=== PATIENT | male | born 1960 | race Caucasian/White ===

== ENCOUNTER 2021-07-08 08:20 | Observation (INO) ==
[2021-07-08] MEDS ORDERED: Ondansetron 4 MG/2 ML VIAL IVP ONE (08:40)
[2021-07-08] MEDS ORDERED: 0.9 % Sodium Chloride 1,000 ML IVC ONE (08:40)
[2021-07-08 09:22] LABS: Basophils % 0.5 %; Eosinophils # 0.1 K/mcL (0.0-0.6); Eosinophils % 1.5 %; Hematocrit 29.8 % (37.5-50.1); Hemoglobin 10.4 g/dL (12.9-16.9); Immature Granulocytes % 1.4 % (0-4); Lymphocytes # 1.7 K/mcL (0.6-4.6); Mean Corpuscular HGB Conc 34.9 g/dL (31.6-35.5); Mean Corpuscular Hemoglobin 33.1 pg (28.0-33.3); Mean Corpuscular Volume 94.9 fL (83.0-100.0); Mean Platelet Volume 9.9 fL (9.4-12.4); Monocytes # 0.4 K/mcL (0.0-1.3); Monocytes % 5.9 %; Platelet Count 210 K/mcL (140-400); Red Blood Count 3.14 M/mcL (4.19-5.50); Red Cell Distribution Width 11.6 % (11.5-14.5); Segmented Neutrophils % 67.7 %; White Blood Count 7.3 K/mcL (4.3-11.1)
[2021-07-08 09:29] LABS: INR 1.1; Prothrombin Time 12.8 Seconds (9.4-12.1)
[2021-07-08 09:35] LABS: Alanine Aminotransferase 12 Units/L (7-52); Albumin 4.5 g/dL (3.5-5.7); Albumin/Globulin Ratio 1.8 (1.1-2.2); Alkaline Phosphatase 56 Units/L (34-104); Aspartate Amino Transferase 12 Units/L (13-39); BUN/Creatinine Ratio 17 (6-26); Blood Urea Nitrogen 40 mg/dL (8-23); Calcium 9.9 mg/dL (8.6-10.3); Carbon Dioxide 28 mEq/L (23-29); Chloride 96 mEq/L (98-107); Globulin 2.5 g/dL (2.4-3.5); Glucose 262 mg/dL (70-105); Lipase 52 Units/L (11-82); Osmolality,Calculated 295 (280-300); Potassium 3.8 mEq/L (3.5-5.1); Sodium 133 mEq/L (136-145); eGFR For African Americans 34 (> 60); eGFR For Non-African Americans 28 (> 60)
[2021-07-08 09:52] LABS: Influenza A PCR Negative (Negative); Influenza B PCR Negative (Negative); Resp. Syncytial Virus PCR Negative (Negative)
[2021-07-08 09:54] LABS: SARS-CoV-2 by PCR (In House) Negative (Negative)
[2021-07-08] MEDS ORDERED: Metoclopramide 10 MG/2 ML VIAL IVP ONE (10:39)
[2021-07-08 10:40] LABS: Troponin I < 0.03 ng/mL (< 0.04)
[2021-07-08 10:42] LABS: Bacteria,Urine Few per hpf (None-Few); Bilirubin,Urine Negative (Negative); Blood,Urine Negative (Negative); Clarity,Urine Clear (Clear); Color,Urine Yellow (Yellow); Glucose,Urine (UA) Normal (Normal); Hyaline Casts,Urine Many per lpf (None Seen); Ketones,Urine Negative (Negative); Leukocyte Esterase,Urine Negative (Negative); Mucus,Urine Few per lpf (None-Few); Nitrite,Urine Negative (Negative); PH,Urine 5.5 pH Units (5.0-8.0); Protein,Urine 30 mg/dL (Neg-Trace); RBC,Urine 0-3 per hpf (0-3); Specific Gravity,Urine 1.021 (1.010-1.025); Squamous Epithelial Cell,Urine Few per hpf (None-Few); WBC,Urine 0-3 per hpf (0-3)
[2021-07-08] MEDS ORDERED: Naloxone 0.4 MG/ML INJ IVP PRN (11:34)
[2021-07-08] MEDS ORDERED: Melatonin 3 MG TABLET PO PRN (11:34)
[2021-07-08] MEDS ORDERED: Ondansetron 4 MG/2 ML VIAL IVP PRN (11:34)
[2021-07-08] MEDS ORDERED: Mag Hydrox/Al Hydrox/Simeth 30 ML UDC PO PRN (11:34)
[2021-07-08] MEDS ORDERED: MOM Conc 10 ML UD.LIQ PO PRN (11:34)
[2021-07-08] MEDS ORDERED: Dextrose Gel 15 GM/37.5 ML TUBE PO PRN ×2 (11:41)
[2021-07-08] MEDS ORDERED: D5% in Water 1,000 ML IVC PRN (11:41)
[2021-07-08] MEDS ORDERED: *HR* Dextrose 50 % in Water (Syg) 50 ML SYRINGE IVP PRN (11:41)
[2021-07-08] MEDS ORDERED: *HR* LORazepam 2 MG/ML VIAL IVP PRN ×3 (12:01)
[2021-07-08] MEDS: 0.9 % Sodium Chloride 1,000 ML IVC SCH (12:06)
[2021-07-08] MEDS: Insulin LISPRO 300 UNITS/3 ML VIAL SUBQ SCH ×2 (12:06→16:27)
[2021-07-08] MEDS: Pantoprazole 40 MG VIAL IVP SCH (17:38)
[2021-07-08 23:22] LABS: Estimated Average Glucose 103 mg/dl; Hemoglobin A1C 5.2 %
[2021-07-09] MEDS: 0.9 % Sodium Chloride 1,000 ML IVC SCH (02:04)
[2021-07-09] MEDS: Insulin LISPRO 300 UNITS/3 ML VIAL SUBQ SCH ×4 (02:05→16:57)
[2021-07-09 02:28] LABS: Basophils % 0.6 %; Eosinophils # 0.1 K/mcL (0.0-0.6); Eosinophils % 2.3 %; Hematocrit 26.3 % (37.5-50.1); Immature Granulocytes % 2.3 % (0-4); Lymphocytes # 1.8 K/mcL (0.6-4.6); Lymphocytes % 37.8 %; Mean Corpuscular HGB Conc 34.2 g/dL (31.6-35.5); Mean Corpuscular Hemoglobin 32.8 pg (28.0-33.3); Monocytes # 0.4 K/mcL (0.0-1.3); Monocytes % 7.3 %; Neutrophils # 2.4 K/mcL (1.6-8.9); Platelet Count 143 K/mcL (140-400); Red Blood Count 2.74 M/mcL (4.19-5.50); Red Cell Distribution Width 11.4 % (11.5-14.5); Segmented Neutrophils % 49.7 %; White Blood Count 4.8 K/mcL (4.3-11.1)
[2021-07-09 03:08] LABS: Albumin 3.6 g/dL (3.5-5.7); Albumin/Globulin Ratio 1.7 (1.1-2.2); Bilirubin,Total 0.8 mg/dL (0.3-1.0); Calcium 8.5 mg/dL (8.6-10.3); Globulin 2.1 g/dL (2.4-3.5); Potassium 3.9 mEq/L (3.5-5.1); Total Protein 5.7 g/dL (6.4-8.9)
[2021-07-09] MEDS: Pantoprazole 40 MG VIAL IVP SCH ×2 (05:57→17:14)
[2021-07-09] MEDS: *HR* Enoxaparin 40 MG/0.4 ML SYRINGE SQ SCH (05:58)
[2021-07-09] MEDS: Vitamin B Complex/Vit C/Vit E 1 EACH TABLET PO SCH (08:14)
[2021-07-09] MEDS: Folic Acid 1 MG TABLET PO SCH (08:14)
[2021-07-09] MEDS: Thiamine (B-1) 100 MG TABLET PO SCH (08:14)
[2021-07-09] MEDS: Cyanocobalamin (B-12) 1,000 MCG TABLET PO SCH (08:14)
[2021-07-09] MEDS ORDERED: Simethicone 40 MG/0.6 ML MLS IR ONE (12:01)
[2021-07-09] MEDS ORDERED: Lidocaine -MPF 2% 2 ML VIAL ONE (12:06)
[2021-07-09] MEDS ORDERED: *HR* Propofol 200 MG/20 ML VIAL IVP ONE (12:07)
[2021-07-09] MEDS ORDERED: *HR* Labetalol 20 MG/4 ML SYRINGE IVP ONE (12:45)
[2021-07-09] MEDS ORDERED: hydroCHLOROthiazide 25 MG TABLET PO SCH (12:45)
[2021-07-09] MEDS: amLODIPine 5 MG TABLET PO SCH (13:49)
[2021-07-09] MEDS ORDERED: *HR* Promethazine 25 MG/ML VIAL IM PRN (14:18)
[2021-07-09] MEDS ORDERED: Morphine Sulfate 2 MG/ML SYRINGE IVP ONE (14:26)
[2021-07-09] MEDS: carvediloL 25 MG TABLET PO SCH (17:14)
[2021-07-09] MEDS ORDERED: *HR* OxyCODONE Immed Rel 5 MG TABLET PO PRN (18:02)
[2021-07-09] MEDS ORDERED: Morphine Sulfate 2 MG/ML SYRINGE IVP PRN (18:02)
[2021-07-09] MEDS ORDERED: Acetaminophen 325 MG TABLET PO PRN (18:03)
[2021-07-09] MEDS: MetroNIDAZOLE 500 MG/100 ML 500 MG/100 ML BAG IVPB SCH (18:33)
[2021-07-09] MEDS: Sucralfate 1 GM TABLET PO SCH ×2 (18:37→21:07)
[2021-07-09] MEDS: niCARdipine 20 MG/200 ML MLS IVC SCH ×2 (20:28→22:30)
[2021-07-10] MEDS: Metoclopramide 10 MG/2 ML VIAL IVP SCH ×5 (00:29→23:18)
[2021-07-10] MEDS: MetroNIDAZOLE 500 MG/100 ML 500 MG/100 ML BAG IVPB SCH ×4 (00:29→23:18)
[2021-07-10 03:05] LABS: Basophils % 0.3 %; Eosinophils # 0.1 K/mcL (0.0-0.6); Eosinophils % 0.8 %; Hematocrit 27.8 % (37.5-50.1); Hemoglobin 9.8 g/dL (12.9-16.9); Immature Granulocytes % 1.5 % (0-4); Lymphocytes # 1.5 K/mcL (0.6-4.6); Lymphocytes % 23.5 %; Mean Corpuscular HGB Conc 35.3 g/dL (31.6-35.5); Mean Corpuscular Hemoglobin 32.6 pg (28.0-33.3); Mean Corpuscular Volume 92.4 fL (83.0-100.0); Mean Platelet Volume 9.8 fL (9.4-12.4); Monocytes # 0.4 K/mcL (0.0-1.3); Monocytes % 6.8 %; Neutrophils # 4.2 K/mcL (1.6-8.9); Platelet Count 169 K/mcL (140-400); Red Blood Count 3.01 M/mcL (4.19-5.50); Red Cell Distribution Width 11.2 % (11.5-14.5); Segmented Neutrophils % 67.1 %; White Blood Count 6.2 K/mcL (4.3-11.1)
[2021-07-10 03:24] LABS: Alanine Aminotransferase 11 Units/L (7-52); Albumin 3.6 g/dL (3.5-5.7); Albumin/Globulin Ratio 1.6 (1.1-2.2); Alkaline Phosphatase 52 Units/L (34-104); Aspartate Amino Transferase 17 Units/L (13-39); BUN/Creatinine Ratio 17 (6-26); Bilirubin,Total 0.8 mg/dL (0.3-1.0); Blood Urea Nitrogen 19 mg/dL (8-23); Calcium 9.3 mg/dL (8.6-10.3); Carbon Dioxide 24 mEq/L (23-29); Chloride 103 mEq/L (98-107); Globulin 2.3 g/dL (2.4-3.5); Glucose 96 mg/dL (70-105); Osmolality,Calculated 284 (280-300); Potassium 3.8 mEq/L (3.5-5.1); Sodium 136 mEq/L (136-145); Total Protein 5.9 g/dL (6.4-8.9); eGFR For African Americans > 60 (> 60); eGFR For Non-African Americans > 60 (> 60)
[2021-07-10] MEDS: Pantoprazole 40 MG VIAL IVP SCH ×2 (06:23→17:55)
[2021-07-10] MEDS: *HR* Enoxaparin 40 MG/0.4 ML SYRINGE SQ SCH (06:23)
[2021-07-10] MEDS: Insulin LISPRO 300 UNITS/3 ML VIAL SUBQ SCH ×3 (08:17→17:34)
[2021-07-10] MEDS: niCARdipine 20 MG/200 ML MLS IVC SCH ×5 (08:26→19:38)
[2021-07-10] MEDS: Thiamine (B-1) 100 MG TABLET PO SCH (08:32)
[2021-07-10] MEDS: Vitamin B Complex/Vit C/Vit E 1 EACH TABLET PO SCH (08:33)
[2021-07-10] MEDS: carvediloL 25 MG TABLET PO SCH ×2 (08:33→17:55)
[2021-07-10] MEDS: amLODIPine 5 MG TABLET PO SCH (08:33)
[2021-07-10] MEDS: Sucralfate 1 GM TABLET PO SCH ×4 (08:33→23:18)
[2021-07-10] MEDS: Folic Acid 1 MG TABLET PO SCH (08:33)
[2021-07-10] MEDS: Cyanocobalamin (B-12) 1,000 MCG TABLET PO SCH (08:34)
[2021-07-10] MEDS ORDERED: Morphine Sulfate 2 MG/ML SYRINGE IVP PRN (20:40)
[2021-07-11] MEDS ORDERED: *HR* Promethazine 25 MG/ML VIAL IM PRN (00:11)
[2021-07-11] MEDS ORDERED: MOM Conc 10 ML UD.LIQ PO PRN (00:11)
[2021-07-11] MEDS ORDERED: Acetaminophen 325 MG TABLET PO PRN (00:11)
[2021-07-11] MEDS ORDERED: Melatonin 3 MG TABLET PO PRN (00:11)
[2021-07-11] MEDS ORDERED: Naloxone 0.4 MG/ML INJ IVP PRN (00:11)
[2021-07-11] MEDS ORDERED: D5% in Water 1,000 ML IVC PRN (00:11)
[2021-07-11] MEDS ORDERED: *HR* Dextrose 50 % in Water (Syg) 50 ML SYRINGE IVP PRN (00:11)
[2021-07-11] MEDS ORDERED: Dextrose Gel 15 GM/37.5 ML TUBE PO PRN ×2 (00:11)
[2021-07-11] MEDS ORDERED: *HR* OxyCODONE Immed Rel 5 MG TABLET PO PRN (00:11)
[2021-07-11] MEDS ORDERED: Ondansetron 4 MG/2 ML VIAL IVP PRN (00:11)
[2021-07-11] MEDS ORDERED: Mag Hydrox/Al Hydrox/Simeth 30 ML UDC PO PRN (00:11)
[2021-07-11] MEDS ORDERED: *HR* Enoxaparin 40 MG/0.4 ML SYRINGE SQ SCH (06:00)
[2021-07-11] MEDS ORDERED: Metoclopramide 10 MG/2 ML VIAL IVP SCH (06:00)
[2021-07-11] MEDS ORDERED: Pantoprazole 40 MG VIAL IVP SCH (06:00)
[2021-07-11] MEDS ORDERED: Insulin LISPRO 300 UNITS/3 ML VIAL SUBQ SCH (07:30)
[2021-07-11] MEDS ORDERED: Sucralfate 1 GM TABLET PO SCH (07:30)
[2021-07-11 07:31] VITALS: BP 115/63; PULSE 67; TEMP 97.9; O2SAT 100
[2021-07-11] MEDS ORDERED: MetroNIDAZOLE 500 MG/100 ML 500 MG/100 ML BAG IVPB SCH (08:00)
[2021-07-11] MEDS ORDERED: carvediloL 25 MG TABLET PO SCH (08:00)
[2021-07-11] MEDS ORDERED: Thiamine (B-1) 100 MG TABLET PO SCH (09:00)
[2021-07-11] MEDS ORDERED: Folic Acid 1 MG TABLET PO SCH (09:00)
[2021-07-11] MEDS ORDERED: Vitamin B Complex/Vit C/Vit E 1 EACH TABLET PO SCH (09:00)
[2021-07-11] MEDS ORDERED: Cyanocobalamin (B-12) 1,000 MCG TABLET PO SCH (09:00)
[2021-07-11] MEDS ORDERED: hydroCHLOROthiazide 25 MG TABLET PO SCH (09:00)
[2021-07-11] MEDS ORDERED: amLODIPine 5 MG TABLET PO SCH (09:00)
== END 2021-07-11 11:10 | disposition home or self-care (01) ==
LOC: 3BNU 08:20 → EMEROOARM 08:20 → SUATTDRO 11:20 → 3BNU 12:09 → 2NNU 07-09 20:16 → 3ANU 07-11 00:03
PROVIDERS: ADMIT Internal Medicine; ATTEND Student in an Organized Health Care Education/Training Program
PROC: ENDOEBX (2021-07-09 13:45)